=== PATIENT | female | born 1985 | race Caucasian/White ===

== ENCOUNTER 2021-11-02 11:06 | Emergency (ER) | payer OTHER, SELFPAY ==
[2021-11-02 11:14] VITALS: BP 153/90; PULSE 59; RESP 16; TEMP 36.6; O2SAT 100
--- NOTE | 2021-11-02 11:37 | ED.URI ---
HPI - URI/Sore Throat General Chief Complaint: Upper Respiratory Infection Stated Complaint: Cough Time Seen by Provider: 11/02/21 11:37 Source: patient, RN notes reviewed and old records reviewed Mode of arrival: ambulatory Limitations: no limitations History of Present Illness HPI Narrative: 36-year-old female who presents to [facility] with increased cough especially at night with green phlegm production for the past 5 days with increase symptoms in past 2 days. Patient reports that she has had no fevers chills or body aches, has been vaccinated for COVID and had flu shot also. Patient reports that she has been nasal drainage and some left ear discomfort with some soreness to her throat also has been taking Benadryl for her symptoms with no improvement. Related Data Home Medications Medication Instructions Recorded Confirmed atenolol 25 mg PO DAILY 11/02/21 11/02/21 levothyroxine 175 mcg PO DAILY 11/02/21 11/02/21 norethindrone-e.estradiol-iron 1 tablet PO DAILY 11/02/21 11/02/21 Allergies Allergy/AdvReac Type Severity Reaction Status Date / Time amoxicillin Allergy Hives Verified 11/02/21 11:24 Penicillins Allergy Swelling Verified 11/02/21 11:24 Review of Systems Review of Systems: CONSTITUTIONAL: Denies fever, chills, or sweats. EYES: Denies visual changes, redness, or discharge. ENT: Positive rhinorrhea, congestion, sore throat, left otalgia. CARDIOVASCULAR: Denies chest pain, palpitations, or edema. RESPIRATORY: Positive increase cough denies dyspnea. GASTROINTESTINAL: Denies abdominal pain, nausea, vomiting, or diarrhea. GENITOURINARY: Denies dysuria or hematuria. SKIN: Denies rash or itching. MUSCULOSKELETAL: Denies back pain, joint pain, or myalgia. NEUROLOGIC: Denies headache, numbness, or weakness. PSYCHIATRIC: Denies anxiety or depression. All systems reviewed & are unremarkable except as noted in HPI and below PMFSH Past Medical History Medical History (Updated 11/02/21 @ 11:58 by Angeline Yuen NP) Hypertension Hyperthyroidism treated with radioactive iodine Hypothyroidism (acquired) Social History Social History (Updated 11/02/21 @ 11:59 by Angeline Yuen NP) Smoking status: Never smoker Alcohol intake: current Alcohol use details: rare social Substance use type: does not use Living arrangements: with family Gender identity (if verbalized by the patient): Female Comments At time of signature, agree with nursing past medical, surgical, social and family history. There is no relevant family history pertinent to the presenting complaint Exam Narrative: GENERAL: Well-appearing, well-nourished, and in no acute distress. HEAD: Normocephalic, atraumatic. EYES: PERRLA and EOMI. ENT: Nares red irritated with clear rhinorrhea no epistaxis. Mucous membranes moist.TM's normal with good light reflex, throat red with no lesions or exudates, no tonsil enlargement. NECK: Supple. no lymphadenopathy CHEST: Clear to auscultation. No respiratory distress.SAO2 100% on room air, cough increased for past 2 nights, no dyspnea or any tachypnea not resting well HEART: Regular rate and rhythm. No murmur heard. Normal peripheral pulses. ABDOMEN: Soft, nontender, nondistended, normal active bowel sounds. EXTREMITIES: Normal range of motion. No edema. SKIN: Warm, dry, no rash. NEURO: No focal deficits. Alert and oriented x3. Course Course Level of Care: Express Care Visit Vital Signs Vital signs: Vital Signs Temperature 36.6 C 11/02/21 11:14 Pulse Rate 59 L 11/02/21 11:14 Respiratory Rate 16 11/02/21 11:14 Blood Pressure 153/90 H 11/02/21 11:14 Pulse Oximetry 100 11/02/21 11:14 Temperature 36.6 C 11/02/21 11:14 Pulse Rate 59 L 11/02/21 11:14 Respiratory Rate 16 11/02/21 11:14 Blood Pressure 153/90 H 11/02/21 11:14 Pulse Oximetry 100 11/02/21 11:14 MDM - URI/Sore Throat Differential Diagnosis Differential diagnosis: Likely upper respiratory infectio
[2021-11-02 11:50] VITALS: BP 157/87; PULSE 71; O2SAT 100
== END 2021-11-02 12:00 | disposition home or self-care (01) ==
PROVIDERS: Emergency Provider Registered Nurse; PCP Nurse Practitioner Family
DX: R05.1 Acute cough (principal); J06.9 Acute upper respiratory infection, unspecified; I10 Essential (primary) hypertension; E03.9 Hypothyroidism, unspecified
CPT/HCPCS: 99203; G0463